=== PATIENT | female | born 1995 | race Caucasian/White ===

== ENCOUNTER 2017-09-24 14:13 | Outpatient (CLI) | END 2017-09-24 16:52 | disposition home or self-care (01) ==

== ENCOUNTER 2017-10-28 19:07 | Outpatient (CLI) | END 2017-10-29 00:30 | disposition home or self-care (01) ==

== ENCOUNTER 2017-11-04 01:00 | Inpatient (IN) | END 2017-11-06 14:29 | disposition home or self-care (01) | DRG 775 ==